=== PATIENT | male | born 1965 | race African-American/Black ===

== ENCOUNTER → 2017-08-05 | Outpatient (CLI) | payer OTHER | END | disposition home or self-care (01) | LOC: US 14:59 | DX: M79.605 Pain in left leg (principal); M79.604 Pain in right leg | CPT/HCPCS: 93925 ==

== ENCOUNTER → 2017-09-23 | Outpatient (CLI) | payer OTHER | END | disposition home or self-care (01) | LOC: PNCL 13:58 | DX: M51.16 Intervertebral disc disorders with radiculopathy, lumbar region (principal); R53.83 Other fatigue | CPT/HCPCS: 99212 ==

== ENCOUNTER → 2017-10-29 | Outpatient (CLI) | payer OTHER ==
[~2017-10-29] MED LIST: IOHEXOL 180 MG/ML 10 ML VIAL.; LIDOCAINE 1% PF 2 ML VIAL.; methylPREDNISolone ACETATE 40 MG/ML VIAL.; methylPREDNISolone ACETATE 80 MG/ML VIAL.
== END ==
LOC: PNCL 10:54
DX: M51.16 Intervertebral disc disorders with radiculopathy, lumbar region (principal)
CPT/HCPCS: 62323; J1030; J1040; Q9965